=== PATIENT | male | born 2000 | race African-American/Black ===

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

== ENCOUNTER 2021-02-25 14:08 | Emergency (ER) | payer OTHER | END 2021-02-25 16:02 | disposition home or self-care (01) | LOC: ED 14:08 | DX: J02.9 Acute pharyngitis, unspecified (principal); Z20.822 Contact with and (suspected) exposure to COVID-19; R50.9 Fever, unspecified; R10.9 Unspecified abdominal pain ==

== ENCOUNTER → 2022-12-31 | Outpatient (CLI) | payer OTHER ==
[2023-01-01 08:08] LABS: HBSAG Negative (Negative); HEP B CORE AB, IGM Negative (Negative); HEPATITIS C ANTIBODY Non Reactive (Non Reactive)
== END | disposition home or self-care (01) ==
LOC: LAB 13:07
PROVIDERS: ATTEND Internal Medicine Nephrology
DX: Z20.2 Contact with and (suspected) exposure to infections with a predominantly sexual mode of transmission (principal)

== ENCOUNTER 2023-07-09 17:22 | Emergency (ER) | payer OTHER ==
[~2023-07-09] VITALS: Ht 180.3 cm; Wt 65.8 kg
[2023-07-09] MEDS ORDERED: MELOXICAM15 MG PO (17:40)
[2023-07-09] MEDS ORDERED: Acetaminophen/Oxycodone 5 MG/325 MG TABLET PO ONE (17:40)
[2023-07-09] MEDS ORDERED: CLINDAMYCIN HC300 MG PO (17:40)
[2023-07-09] MEDS ORDERED: CLINDAMYCIN HCL 300 MG CAPSULE PO ONE (17:40)
== END 2023-07-09 17:57 | disposition home or self-care (01) ==
LOC: ED 17:22
DX: L03.116 Cellulitis of left lower limb (principal)